=== PATIENT | male | born 1985 | race Two or more races ===

== ENCOUNTER 2025-06-02 17:11 | Emergency (ER) | payer SELFPAY ==
[~2025-06-02] VITALS: Ht 162.6 cm; Wt 55.0 kg
[2025-06-02 17:18] VITALS: O2SAT 99
[2025-06-02] MEDS: ACETAMINOPHEN 500MG TABLET PO ONE (18:12)
[2025-06-02 18:31] LABS: BASOPHILS % 0.3 % (0.0-2.0); EOSINOPHILS % 1.5 % (0.0-5.0); HEMATOCRIT. 42.1 % (42.0-52.0); HEMOGLOBIN. 14.4 g/dL (14.0-18.0); LYMPHOCYTES % 18.7 % (20.0-50.0); MEAN PLATELET VOLUME 9.0 fl (7.4-10.4); MONOCYTES % 4.1 % (2.0-8.0); NEUTROPHILS % 75.4 % (40.0-76.0); PLATELET 252 x1000/uL (130-400); RED BLOOD CELL COUNT 4.73 mill/uL (4.7-6.1); RED CELL DISTRIBUTION WIDTH 13.8 % (11.6-14.6)
[2025-06-02 18:42] LABS: INR 1.0
[2025-06-02 18:45] LABS: CREATININE 1.1 mg/dL (0.6-1.3); UREA NITROGEN BLOOD 29 mg/dL (9-23)
[2025-06-02 18:47] LABS: ASPARTATE AMINOTRANSFERASE 25 IU/L (<34); BILIRUBIN DIRECT 0.2 mg/dL (<=3.0); BILIRUBIN TOTAL 0.7 mg/dL (0.1-1.0); PROTEIN TOTAL 8.4 g/dL (6.0-8.3)
[2025-06-02 20:04] VITALS: TEMP 36.6
[2025-06-02] MEDS ORDERED: IBUP-2030 MT (20:58)
[2025-06-02 21:57] VITALS: BP 106/67; PULSE 70; RESP 17; O2SAT 100
[2025-06-02] MEDS ORDERED: IOHEXOL-300 100 ML BOTTLE ONE (22:58)
== END 2025-06-02 22:03 | disposition home or self-care (01) ==
LOC: ER 17:11
DX: R10.32 Left lower quadrant pain (principal); F19.90 Other psychoactive substance use, unspecified, uncomplicated
CPT/HCPCS: 99285; 74177; 80076; 80048; 83605; 85025; 85610; 85730; 86850; 86900; 86901; 36415; Q9967